=== PATIENT | female | born 1995 | race Two or more races ===

== ENCOUNTER 2021-05-08 05:37 | Emergency (ER) | payer OTHER ==
[~2021-05-08] VITALS: Ht 177.8 cm; Wt 79.4 kg
--- NOTE | 2021-05-08 05:55 | NUR ---
PT [facility] AND [employer] C/O ALCOHOL INTOXICATION FROM [employer] HOLDING CELL. PT UNWILLING TO ANSWER QUESTIONS, KEEPS REPEATING "IM NOT TALKING TO YOU". MD AT BEDSIDE FOR EVALUATION. PT ATTACHED TO MONITOR AND POX. PT GIVEN BLANKET AND CALL LIGHT WITHIN REACH
[2021-05-08] MEDS ORDERED: OLANZAPINE 10 MG VIAL IM ONE ×2 (06:30→06:44)
--- NOTE | 2021-05-08 07:06 | NUR ---
TAKEN TO RADIOLOGY
--- NOTE | 2021-05-08 07:23 | NUR ---
GAVE REPORT TO CHLOÉ LUGO FOR LOREN
[2021-05-08] MEDS ORDERED: LORAZEPAM INJ 2 MG/ML VIAL ONE (07:34)
--- NOTE | 2021-05-08 07:35 | NUR ---
URINE COLLECTED AND SENT TO LAB
[2021-05-08] MEDS ORDERED: LORAZEPAM INJ 2 MG/ML VIAL IM ONE (08:00)
[2021-05-08 08:27] LABS: BASOPHILS % (AUTO) 0.2 % (0.0-2.0); EOSINOPHILS % (AUTO) 0.1 % (0.0-6.0); HEMATOCRIT 40 % (33-45); HEMOGLOBIN 14.2 g/dL (11.5-14.8); LYMPHOCYTES # (AUTO) 1.5 K/uL (0.8-4.8); LYMPHOCYTES % (AUTO) 12.5 % (20.0-44.0); MEAN CORPUSCULAR HGB CONC 35 g/dl (31.0-36.0); MEAN CORPUSCULAR VOLUME 86 fL (82-100); MONOCYTES # (AUTO) 0.5 K/uL (0.1-1.30); MONOCYTES % (AUTO) 3.9 % (2.0-12.0); NEUTROPHILS # (AUTO) 9.7 K/uL (1.8-8.9); NEUTROPHILS % (AUTO) 83.3 % (43.0-81.0); PLATELET COUNT (AUTO) 316 K/uL (150-450); WHITE BLOOD COUNT (AUTO) 11.7 K/uL (4.3-11.0)
[2021-05-08 08:39] LABS: POTASSIUM 2.9 mmol/L (3.5-5.1)
[2021-05-08 08:45] LABS: ALBUMIN 4.1 g/dL (3.4-5.0); BILIRUBIN,DIRECT 0.1 mg/dL (0.0-0.2); BILIRUBIN,TOTAL 0.3 mg/dL (0.2-1.0); TOTAL PROTEIN, SERUM 7.5 g/dL (6.4-8.2)
[2021-05-08 08:45] LABS: BILIRUBIN,URINE NEGATIVE (NEGATIVE); COLOR,URINE YELLOW (YELLOW); LEUKOCYTE ESTERASE ,URINE NEGATIVE (NEGATIVE); NITRITE, URINE NEGATIVE (NEGATIVE); PROTEIN,URINE NEGATIVE (NEGATIVE); UGLUCOSE NEGATIVE (NEGATIVE); UROBILINOGEN,URINE 0.2 EU/dL (0.2)
[2021-05-08] MEDS ORDERED: IV PREMIX D5 1/2NS + KCL 1,000 ML IV ONE ×2 (09:00→09:20)
[2021-05-08] MEDS ORDERED: POTASSIUM CHLORIDE 20 MEQ TAB.PRT.SR PO ONE ×2 (12:30→12:31)
[2021-05-08] MEDS ORDERED: POTA-58 PO (12:34)
--- NOTE | 2021-05-08 13:05 | NUR ---
IV removed. Catheter intact and site benign. Pressure and 4x4 applied to site. No bleeding noted.Patient discharged to home in stable condition. Written and verbal after care instructions given. Patient verbalizes understanding of instruction.
[2021-05-08 13:07] VITALS: BP 122/64
== END 2021-05-08 13:07 | disposition home or self-care (01) ==
LOC: ER 05:42
DX: F10.129 Alcohol abuse with intoxication, unspecified (principal); E87.6 Hypokalemia; Y90.6 Blood alcohol level of 120-199 mg/100 ml
CPT/HCPCS: 36415; 70450; 80048; 80076; 80143; 80307; 80320; 81003; 85025; 96365; 96366; 96372 ×2; 99285; J2060; J3490 ×2; G0480